=== PATIENT | female | born 1960 | race American Indian/Alaskan Native ===

== ENCOUNTER 2017-05-06 14:33 | Emergency (ER) | payer OTHER ==
[2017-05-06 14:41] VITALS: TEMP 99; O2SAT 99
--- NOTE | 2017-05-06 15:30 | ED PDOC ---
HPI: Hypertension/Hypotension Time Seen by Provider: 05/06/17 14:44 Chief Complaint (Nursing): High Blood Pressure History Per: Patient Additional Complaint(s): Pt. states for the past several weeks she has not been feeling like herself. States she feels very slow to respond. Also states that for the past 2 weeks she 's had a R sided headache. Today she took her BP at a pharmacy and was 189/110 prompting ED visit. Denies chest pain, weakness, SOB, visual changes, palpitations. Of note, pt. does have a hx of HTN but has not taken her Metoprolol in over 6 months as she wanted to try dieting. Pt. discontinued metoprolol on her own but her PMD is unaware of it. Past Medical History Reviewed: Historical Data, Nursing Documentation, Vital Signs Vital Signs: Last Vital Signs Temp 99 F 05/06/17 14:37 Pulse 78 05/06/17 14:37 Resp 18 05/06/17 14:37 BP 179/100 H 05/06/17 15:05 Pulse Ox 99 05/06/17 14:37 - Medical History PMH: HTN - Surgical History Surgical History: Appendectomy - Family History Family History: States: No Known Family Hx - Immunization History Hx Tetanus Toxoid Vaccination: (unknown) - Home Medications Home Medications: Ambulatory Orders Medication Instructions Recorded Metoprolol Succinate [Toprol XL] 25 mg PO DAILY #15 tab 05/06/17 Nitrofurantoin Macrocrystals 100 mg PO BID #14 cap 05/06/17 [Macrobid] - Allergies Allergies/Adverse Reactions: Allergies Allergy/AdvReac Type Severity Reaction Status Date / Time No Known Allergies Allergy Verified 08/29/14 15:06 Review of Systems ROS Statement: Except As Marked, All Systems Reviewed And Found Negative Neurological: Positive for: Headache Physical Exam - Reviewed Nursing Documentation Reviewed: Yes Vital Signs Reviewed: Yes - Physical Exam Appears: Positive for: Well, Non-toxic, No Acute Distress Head Exam: Positive for: ATRAUMATIC, NORMAL INSPECTION, NORMOCEPHALIC Skin: Positive for: Normal Color, Warm. Negative for: Rash Eye Exam: Positive for: EOMI, Normal appearance, PERRL ENT: Positive for: Normal ENT Inspection Neck: Positive for: Normal, Painless ROM Cardiovascular/Chest: Positive for: Regular Rate, Rhythm Respiratory: Positive for: CNT, Normal Breath Sounds Gastrointestinal/Abdominal: Positive for: Normal Exam, Bowel Sounds, Soft. Negative for: Tenderness, Mass Back: Positive for: Normal Inspection Extremity: Positive for: Normal ROM Neurologic/Psych: Positive for: Alert, Oriented. Negative for: Aphasia, Facial Droop - Laboratory Results Result Diagrams: 05/06/17 15:51 05/06/17 15:51 - ECG ECG: Positive for: Interpreted By Me ECG Rhythm: Positive for: Sinus Rhythm. Negative for: ST/T Changes Rate: 79 O2 Sat by Pulse Oximetry: 99 - Radiology X-Ray: Interpreted by Me (CXR) X-Ray Interpretation: No Acute Disease - Progress ED Course And Treament: Labs ordered. Metoprolol 25mg PO ordered. CT head w/o contrast ordered. EKG ordered 1722 CT head w/o contrast: No acute intracranial hemorrhage. Mild chronic periventricular white matter ischemic changes with some extension into the white matter tracts both basal ganglia right greater than left as above. Repeat BP: 140/77. On re-evaluation, pt. in no distress. Reports good relief of headache. Pt. informed of results and necessary f/u with PMD. Low salt diet encouraged. Urine culture ordered. Disposition - Clinical Impression Clinical Impression: Hypertension, UTI (urinary tract infection) - Patient ED Disposition Is Patient to be Admitted: No - Disposition Referrals: Jens Quan [Outside] Disposition: Routine/Home Disposition Time: 17:26 Condition: IMPROVED Prescriptions: Metoprolol Succinate [Toprol XL] 25 mg PO DAILY #15 tab Nitrofurantoin Macrocrystals [Macrobid] 100 mg PO BID #14 cap Instructions: Urinary Tract Infection in Women (ED), Low Sodium Diet (ED), Hypertension (ED) Forms: [employer] ([place])
[2017-05-06 16:00] LABS: BASO # 0.1 K/uL (0.0-0.2); BASO % 1.1 % (0.0-2.0); EOS # 0.2 K/uL (0.0-0.7); EOS % 2.2 % (0.0-4.0); HEMATOCRIT 36.8 % (34.0-47.0); LYMPH # 3.3 K/uL (1.0-4.3); LYMPH % 44.8 % (20.0-40.0); MEAN CELL VOLUME 80.3 fl (81.0-99.0); MEAN CORPUSCULAR HEMOGLOBIN 25.8 pg (27.0-31.0); MEAN CORPUSCULAR HGB CONC 32.1 g/dL (33.0-37.0); MEAN PLATELET VOLUME 7.8 fl (7.2-11.7); MONO # 0.5 K/uL (0.0-0.8); MONO % 6.6 % (0.0-10.0); NEUT # 3.3 K/uL (1.8-7.0); NEUT % 45.3 % (50.0-75.0); NRBC % 0.1 % (0.0-0.0); RED CELL DISTRIBUTION WIDTH 15.4 % (11.5-14.5); WHITE BLOOD COUNT 7.3 K/uL (4.8-10.8)
--- NOTE | 2017-05-06 16:02 | RAD ---
HISTORY: elevated BP COMPARISON: Comparison made with plain film radiographs of the chest dated 06/09/2012 FINDINGS: LUNGS: No active pulmonary disease. PLEURA: No significant pleural effusion identified, no pneumothorax apparent. CARDIOVASCULAR: Heart size appears borderline/ mildly enlarged OSSEOUS STRUCTURES: No significant abnormalities. VISUALIZED UPPER ABDOMEN: Normal. OTHER FINDINGS: None. IMPRESSION: No evidence of acute infiltrate or effusion.
[2017-05-06 16:20] LABS: ALB/GLOB RATIO 1.5 (1.0-2.1); ALKALINE PHOSPHATASE 83 U/L (38-126); ALT/SGPT 54 U/L (9-52); AST/SGOT 28 U/L (14-36); BILIRUBIN,TOTAL 0.3 mg/dl (0.2-1.3); BLOOD UREA NITROGEN 11 mg/dl (7-17); CARBON DIOXIDE 27 mmol/L (22-30); CHLORIDE 104 mmol/L (98-107); GFR AFRICAN-AMERICAN > 60; GLUCOSE,RANDOM 87 mg/dL (65-105); POTASSIUM 3.8 MMOL/L (3.6-5.0); SODIUM 142 mmol/l (132-148)
[2017-05-06 16:58] LABS: RBC URINE < 1 /hpf (0-3); URINE BACTERIA RARE (<OCC); URINE BILIRUBIN NEGATIVE (NEGATIVE); URINE BLOOD NEGATIVE (NEGATIVE); URINE COLOR STRAW (YELLOW); URINE GLUCOSE (UA) NEG (Normal); URINE KETONE NEGATIVE (NEGATIVE); URINE LEUKOCYTE ESTERASE LARGE Leu/uL (Negative); URINE PROTEIN NEGATIVE (NEGATIVE); URINE UROBILINOGEN 0.2-1.0 mg/dL (0.2-1.0); WBC URINE 33 /hpf (0-5)
--- NOTE | 2017-05-06 17:04 | CT ---
PROCEDURE: CT HEAD WITHOUT CONTRAST. HISTORY: headache, elevated BP COMPARISON: None available. TECHNIQUE: Axial computed tomography images were obtained through the head/brain without intravenous contrast. Radiation dose: Total exam DLP = 850.28 mGy-cm. This CT exam was performed using one or more of the following dose reduction techniques: Automated exposure control, adjustment of the mA and/or kV according to patient size, and/or use of iterative reconstruction technique. FINDINGS: HEMORRHAGE: No intracranial hemorrhage. BRAIN: Mild chronic periventricular white matter ischemic changes most conspicuous in the peripheral horn regions right greater than left with extension into the anterior limbs of the external capsules right greater than left. . Ventricular and sulcal size are within range of available for this patient's stated age. VENTRICLES: No obstructive hydrocephalus. CALVARIUM: There are no acute calvarial fractures. PARANASAL SINUSES: Visualized paranasal sinuses well-developed and currently well-aerated. MASTOID AIR CELLS: Unremarkable as visualized. No inflammatory changes. OTHER FINDINGS: Orbits and contents unremarkable. IMPRESSION: No acute intracranial hemorrhage. Mild chronic periventricular white matter ischemic changes with some extension into the white matter tracts both basal ganglia right greater than left as above.
[2017-05-06 17:25] VITALS: PULSE 79
[2017-05-06 17:29] VITALS: BP 140/77; RESP 22
--- NOTE | 2017-05-08 09:39 | CARD ---
APPROVED REPORT EKG Measurement Heart [id number] <Conclusion> Normal sinus rhythm Possible Left atrial enlargement Borderline ECG
== END 2017-05-06 17:39 | disposition home or self-care (01) ==
LOC: H.ER 14:33
DX: N39.0 Urinary tract infection, site not specified (principal); I10 Essential (primary) hypertension